=== PATIENT | male | born 1965 | race African-American/Black ===

== ENCOUNTER 2017-11-21 07:54 | Day surgery (SDC) | payer OTHER ==
[2017-11-21] MEDS ORDERED: LR 1,000 ML IV ×2 (08:15→12:15)
[2017-11-21] MEDS ORDERED: PROPOFOL 200 MG/20 ML VIAL As Ordered ×2 (09:00→11:36)
[2017-11-21] MEDS ORDERED: ROCURONIUM BROMIDE 50 MG/5 ML VIAL As Ordered (09:00)
[2017-11-21] MEDS ORDERED: LIDOCAINE 2% INJ 100 MG/5 ML SDV (FOR ANES.) As Ordered (09:00)
[2017-11-21] MEDS ORDERED: fentaNYL 250 MCG/5 ML INJECTION (J3010) As Ordered (09:00)
[2017-11-21] MEDS ORDERED: MIDAZOLAM INJ 2 MG/2 ML VIAL (J2250) As Ordered (09:01)
[2017-11-21] MEDS: PHENYLEPHRINE 0.5% NASAL SPRAY 15 ML As Ordered (10:20)
[2017-11-21] MEDS: dexameTHASONE 4 MG/ML 1ML VIAL (J1100) IV (10:35)
[2017-11-21] MEDS: AMPICILLIN SOD/SULBACTAM SOD 3 GM in D5W MINI-BAG PLUS 100 ML IV (10:36)
[2017-11-21] MEDS: LIDOCAINE 2% W/ EPINEPHRINE 1.7 ML DENTAL INJ As Ordered (10:43)
[2017-11-21] MEDS: MEPIVACAINE HCL 3 % 1.7 ML DENTAL CARTRIDGE (CARBOCAINE) (J0670) As Ordered (10:43)
[2017-11-21] MEDS ORDERED: ONDANSETRON 4MG/2ML VIAL (J2405) As Ordered (10:44)
[2017-11-21] MEDS ORDERED: GLYCOPYRROLATE INJ 0.2 MG/ML 2 ML VIAL As Ordered ×2 (10:45)
[2017-11-21] MEDS ORDERED: hydrALAZINE INJ 20 MG/ML VIAL As Ordered (11:34)
[2017-11-21] MEDS ORDERED: HYDROmorphone HCL 1 MG/ML SYRINGE (J1170) IV (12:15)
[2017-11-21] MEDS ORDERED: PERCOCET 5MG/325MG TAB PO (12:15)
[2017-11-21] MEDS ORDERED: ONDANSETRON 4MG/2ML VIAL (J2405) IV (12:15)
[2017-11-21] MEDS: fentaNYL 100 MCG/2 ML INJECTION (J3010) IV ×4 (12:22→12:38)
== END 2017-11-21 13:39 | disposition home or self-care (01) ==
LOC: M SDC 07:54
DX: K02.9 Dental caries, unspecified (principal); I10 Essential (primary) hypertension; K25.9 Gastric ulcer, unspecified as acute or chronic, without hemorrhage or perforation; M12.9 Arthropathy, unspecified; F12.90 Cannabis use, unspecified, uncomplicated; D68.61 Antiphospholipid syndrome; Z79.899 Other long term (current) drug therapy; Z86.73 Personal history of transient ischemic attack (TIA), and cerebral infarction without residual deficits; Z72.0 Tobacco use
CPT/HCPCS: D9223